=== PATIENT | female | born 1955 | race Caucasian/White ===

== ENCOUNTER 2018-04-01 21:06 | Inpatient (IN) | payer OTHER, BC ==
[~2018-04-01] VITALS: Ht 165.1 cm; Wt 87.0 kg
[~2018-04-01 21:06] MED LIST: BUSPAR5 MG PO; COZAAR100 MG PO; DIPROLENE 0.05%15 GM TP; DOLOPHINE HCL10 MG PO; IMITREX50 MG PO; INDERAL XL120 MG PO; INDERAL10 MG PO; LEVOXYL112 MCG PO; LIPITOR40 MG PO; NORVASC10 MG PO; PAXIL20 MG PO; PERCOCET 5/31 TABLET PO; PROTONIX40 MG PO; RELPAX40 MG PO
[2018-04-02 06:57] VITALS: BP 105/59
[2018-04-02] MEDS ORDERED: PERCOCET 7.51 TABLET PO (11:50)
[2018-04-02] MEDS ORDERED: FLEXERIL5 MG PO (11:51)
[2018-04-02 15:25] VITALS: BP 138/83
[2018-04-02 19:37] VITALS: BP 110/71
[2018-04-02 23:54] VITALS: BP 109/72
[2018-04-03 04:06] VITALS: BP 106/58
[2018-04-03 08:13] VITALS: BP 96/55
[2018-04-03 11:58] VITALS: BP 108/55
[2018-04-03 15:34] VITALS: BP 114/95
[2018-04-03 19:33] VITALS: BP 92/54
[2018-04-03 23:42] VITALS: BP 97/56
[2018-04-04 04:43] VITALS: BP 115/58
[2018-04-04 08:05] VITALS: BP 111/63
[2018-04-04 11:22] VITALS: BP 105/59
[2018-04-04 15:46] VITALS: BP 110/56
== END 2018-04-04 17:41 | disposition home health service (06) | DRG 460 ==
LOC: ENRESERV 21:06 → 2SOUTH 04-02 05:39 → ENRESERV 04-02 13:39 → SDC 04-02 14:12 → 3EAST 04-02 14:24 → EDSTATUS 04-02 14:29 → 2SOUTH 04-02 14:31 → 3EAST 04-04 17:41
DX: M43.17 Spondylolisthesis, lumbosacral region (principal); I10 Essential (primary) hypertension; E03.9 Hypothyroidism, unspecified; E78.00 Pure hypercholesterolemia, unspecified; K21.9 Gastro-esophageal reflux disease without esophagitis; F32.9 Major depressive disorder, single episode, unspecified; H91.90 Unspecified hearing loss, unspecified ear; I69.398 Other sequelae of cerebral infarction; H53.9 Unspecified visual disturbance
CPT/HCPCS: 72100; 76000; 86850; 86900; 86901; 94799; J0330; J0690; J1100; J1170; J2405; J3010; J3370; J3480